=== PATIENT | female | born 1995 | race Caucasian/White ===

== ENCOUNTER 2021-01-30 20:19 | Outpatient (REF) | payer OTHER, SELFPAY ==
[2021-01-30 20:57] LABS: Prothrombin Time 10.3 sec (9.3-11.0)
[2021-01-30 21:32] LABS: D-Dimer 392 ng/mlFEU (<500)
== END 2021-01-30 20:20 | disposition home or self-care (01) ==
LOC: NCHCN 20:19
PROVIDERS: Visit Provider Nurse Practitioner Family
DX: I80.8 Phlebitis and thrombophlebitis of other sites (principal); Z79.01 Long term (current) use of anticoagulants; I83.90 Asymptomatic varicose veins of unspecified lower extremity
CPT/HCPCS: 85379; 85610

== ENCOUNTER 2022-09-21 12:16 | Outpatient (REF) | payer OTHER, SELFPAY ==
--- NOTE | 2022-09-21 11:45 | PAPFT_PTH ---
PATIENT: Mora Prince LOC: [facility] U#:[id number] AGE/SX: 27/F ROOM: RE09/21/[address]: Griselda Dasilva NP : 1995 BED: DIS: 09/21/2022 SPEC #: [id number] RECD: 09/22/22 12:48 STATUS: MARCE REQ #: [id number] YU: 09/21/22 11:[address]: Griselda Dasilva NP DEPT: [facility] Cytology RECD BY: Lise Ambrocio ENTERED: 09/22/22 12:49 SP TYPE: PAPFT OTHR DR: Paloma Olivares Tissues: 1 - CX/ENDOCX FOR PAP SMEARS Procedures: PAP THIN PREP/[facility] Screening Comments: [id number]
== END 2022-09-21 12:17 | disposition home or self-care (01) ==
LOC: LBN 12:16
PROVIDERS: PCP Nurse Practitioner; Visit Provider Nurse Practitioner Women's Health
DX: Z12.4 Encounter for screening for malignant neoplasm of cervix (principal)
CPT/HCPCS: 88142

== ENCOUNTER 2023-03-29 20:59 | Outpatient (REF) | payer OTHER, SELFPAY | END 2023-03-29 21:00 | disposition home or self-care (01) | LOC: LBN 20:59 | PROVIDERS: PCP Physician Assistant; Visit Provider Nurse Practitioner Women's Health | DX: N89.8 Other specified noninflammatory disorders of vagina (principal) | CPT/HCPCS: 87480; 87510; 87660 ==